=== PATIENT | male | born 2000 | race Caucasian/White ===

== ENCOUNTER 2023-11-28 08:31 | Emergency (ER) | payer MEDICAID ==
[~2023-11-28] VITALS: Ht 172.7 cm; Wt 91.6 kg
[2023-11-28 08:40] VITALS: BP 155/105; PULSE 93; RESP 17; TEMP 98.8; O2SAT 99
[2023-11-28 09:58] LABS: APPEARANCE,URINE CLEAR (CLEAR); BILIRUBIN,URINE NEGATIVE (NEGATIVE); BLOOD, URINE NEGATIVE (NEGATIVE); COLOR,URINE YELLOW (YELLOW); NITRITE, URINE NEGATIVE (NEGATIVE); PROTEIN,URINE 1+ (NEGATIVE); UGLUCOSE 3+ (NEGATIVE); UROBILINOGEN,URINE 0.2 EU/dL (0.2 - 1)
[2023-11-28 10:01] LABS: BACTERIA,URINE OCCASSIONAL /HPF (None Seen); LEUKOCYTE ESTERASE ,URINE 1+ (NEGATIVE); RBC,URINE 0-5 /HPF (0-5); SQUAMOUS EPITHELIAL CELL,UR 0-3 (FEW) /LPF (0-3 (FEW)); WBC,URINE 16-25 (MOD) /HPF (0-5)
[2023-11-28] MEDS ORDERED: VIB100 PO (10:13)
[2023-11-28] MEDS ORDERED: DIPH25SG5 PO (10:13)
[2023-11-28] MEDS ORDERED: PRED20TA5 PO (10:13)
[2023-11-28] MEDS ORDERED: cefTRIAXone 500 MG VIAL ONE (10:13)
[2023-11-28] MEDS ORDERED: LIDOCAINE MPF 1% 5 ML ONE (10:13)
[2023-11-28] MEDS: cefTRIAXone 500 MG in LIDOCAINE MPF 1% 1 ML IM ONE (10:17)
[2023-11-28 11:35] LABS: HIV RAPID SCREEN NON-REACTIVE (NON REACTIV); RAPID PLASMA REAGIN NON-REACTIVE (Non Reactiv)
== END 2023-11-28 10:25 | disposition home or self-care (01) ==
LOC: MED 08:31
DX: N39.0 Urinary tract infection, site not specified (principal); N47.6 Balanoposthitis; R03.0 Elevated blood-pressure reading, without diagnosis of hypertension; Z79.899 Other long term (current) drug therapy
CPT/HCPCS: 81001; 86592; 86703; 87086; 87491; 96372; 99283; J0696; J2003

== ENCOUNTER 2023-12-10 02:10 | Emergency (ER) | payer MEDICAID ==
[~2023-12-10] VITALS: Ht 170.2 cm; Wt 88.5 kg
[~2023-12-10 02:10] MED LIST: DIPH25SG5 PO; PRED20TA5 PO; VIB100 PO
[2023-12-10 02:25] VITALS: BP 160/105; PULSE 112; RESP 18; TEMP 98; O2SAT 99
[2023-12-10 02:56] VITALS: O2SAT 99
[2023-12-10] MEDS ORDERED: HYD1C TP (03:01)
== END 2023-12-10 03:09 | disposition home or self-care (01) ==
LOC: MED 02:10
DX: N47.1 Phimosis (principal); R03.0 Elevated blood-pressure reading, without diagnosis of hypertension; Z79.899 Other long term (current) drug therapy
CPT/HCPCS: 99283